=== PATIENT | male | born 1980 | race Caucasian/White ===

== ENCOUNTER → 2017-01-02 | Outpatient (CLI) | payer OTHER ==
[2017-01-05 00:31] LABS: CHLAMYDIA TRACH RNA*** NOT DETECTED (NOT DETECTED); GC (NEIS GONORRHOEAE)RNA** NOT DETECTED (NOT DETECTED)
== END | disposition home or self-care (01) ==
LOC: C.LABSPEC 17:21
PROVIDERS: ATTEND Urology
DX: N52.9 Male erectile dysfunction, unspecified (principal)

== ENCOUNTER → 2017-01-26 | Outpatient (CLI) | payer OTHER ==
--- NOTE | 2017-01-26 11:16 | DIAGNOSTIC IMAGING REPORT ---
SCROTAL ULTRASOUND CLINICAL HISTORY: Epididymitis. COMPARISON STUDY: None. TECHNIQUE: Grayscale and color and duplex Doppler sonography of the scrotum was performed. FINDINGS: The right testis measures 4.4 x 3.4 x 2.7 cm and the left measures 4.8 x 3.2 x 2.8 cm. There is no testicular mass. Color flow within each testis is symmetric. There is no evidence for epididymitis. IMPRESSION: 1. Normal sonographic appearance of the testes. 2. No sonographic evidence of epididymitis. Electronically signed by: Danie Lopes M.D. 01/26/2017 11:14 AM Dictated Date/Time: 01/26/2017 11:13 AM
== END | disposition home or self-care (01) ==
LOC: C.ULTR 10:10
PROVIDERS: ATTEND Urology
DX: N45.1 Epididymitis (principal)

== ENCOUNTER → 2017-04-14 | Outpatient (CLI) | payer OTHER | END | disposition home or self-care (01) | LOC: C.PATHSPEC 14:46 | PROVIDERS: ATTEND Urology | DX: Z30.2 Encounter for sterilization (principal) ==